=== PATIENT | female | born 1955 | race Caucasian/White ===

== ENCOUNTER 2017-05-23 19:33 | Emergency (ER) | payer SELFPAY ==
[~2017-05-23] VITALS: Ht 160 cm; Wt 74.5 kg
[~2017-05-23 19:33] MED LIST: CALC-67 PO; EZET1TAB35 PO; HYDR25TA6 PO; LEVO125T75 PO
[2017-05-23 19:36] VITALS: Ht 160 cm; Wt 74.5 kg
== END 2017-05-23 22:30 | disposition left against medical advice (07) ==
LOC: E/R 19:33
DX: Z53.21 Procedure and treatment not carried out due to patient leaving prior to being seen by health care provider (principal)
CPT/HCPCS: 99281